=== PATIENT | female | born 1985 | race Caucasian/White ===

== ENCOUNTER 2018-11-29 23:37 | Observation (INO) | payer MEDICAID, OTHER ==
[2018-11-30 02:01] LABS: Alcohol, Urine < 3.0 mg/dL (0-5); Amphetamine Screen, Urine NEGATIVE (NEGATIVE); Barbiturate Scree,Urine NEGATIVE (NEGATIVE); Benzodiazephine Screen, Urine NEGATIVE (NEGATIVE); Cannabinoid Screen, Urine NEGATIVE (NEGATIVE); Cocaine Screen, Urine NEGATIVE (NEGATIVE); Opiate Scree,Urine NEGATIVE (NEGATIVE); Phencyclidine Screen, Urine NEGATIVE (NEGATIVE)
== END 2018-11-30 01:10 | disposition home or self-care (01) | DRG 566 ==
LOC: LDRP 23:37
PROVIDERS: ADMIT Specialist; ATTEND Specialist
DX: O36.8130 Decreased fetal movements, third trimester, not applicable or unspecified (principal); Z3A.30 30 weeks gestation of pregnancy; Z87.891 Personal history of nicotine dependence
CPT/HCPCS: 76818; 80307; G0378